=== PATIENT | male | born 1985 | race Caucasian/White ===

== ENCOUNTER 2021-01-29 12:22 | Emergency (ER) | payer BC, OTHER ==
[~2021-01-29] VITALS: Ht 180.3 cm; Wt 77.2 kg
--- NOTE | 2021-01-29 13:23 | NUR ---
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
[2021-01-29 13:41] LABS: BASOPHILS % (AUTO) 1 % (0-1); EOSINOPHILS % (AUTO) 2 % (1-7); LYMPHOCYTES % (AUTO) 22 % (22-44); MEAN CORPUSCULAR HEMOGLOBIN 33.8 pg (27.5-34.5); MEAN CORPUSCULAR HGB CONC 34.6 g/dL (33.2-36.2); MEAN PLATELET VOLUME 9.1 fL (7.4-10.4); MONOCYTES % (AUTO) 7 % (2-9); NEUTROPHILS % (AUTO) 68 % (42-75); PLATELET COUNT 209 x10^3/uL (130-400); RED BLOOD COUNT 4.83 x10^6/uL (4.38-5.82); RED CELL DISTRIBUTION WIDTH 12.2 % (9.4-14.8)
[2021-01-29 13:43] LABS: MD NO
[2021-01-29 13:50] LABS: ANION GAP 3 mmol/L (5-15); CALCIUM 9.5 mg/dL (8.5-10.1); CHLORIDE 107 mmol/L (98-107); CREATININE 0.86 mg/dL (0.7-1.3)
--- NOTE | 2021-01-29 14:18 | NUR ---
PT C/O EYELID AND FOREHEAD SWELLING THAT STARTED YESTERDAY. PT SAW PRIMARY CARE AND WAS GIVEN AN ANTIBIOTIC FOR POSSIBLE CELLULITIS. PT DENIES DISCHARGE, PAIN, OR ITCHING TO THE EYES. PT DENIES ALLERGES OR CONTACT WITH ANYTHING THAT MAY CAUSE HIM ALLERGIES.
[2021-01-29] MEDS ORDERED: DIPHENHYDRAMINE 50 MG CAPSULE PO PRN (14:30)
[2021-01-29] MEDS ORDERED: DIPHENHYDRAMINE 50 MG CAPSULE ONE (14:39)
--- NOTE | 2021-01-29 15:32 | NUR ---
CARE FOR DC ONLY PROVIDED. PT SITTING UP ON GURNEY. DECREASED SWELLING TO EYES NOTED. NO IV TO DC. REVIEWED DC INSTRUCTIONS WITH PT. UNDERSTANDING VERBALIZED. PT LEFT AMB, GAIT STEADY.
[2021-01-29 15:33] VITALS: BP 117/86
== END 2021-01-29 15:36 | disposition home or self-care (01) ==
LOC: ED 14:00
DX: H57.12 Ocular pain, left eye (principal); M79.89 Other specified soft tissue disorders
CPT/HCPCS: 36415; 80048; 82040; 85025; 99283